=== PATIENT | female | born 1990 | race Caucasian/White ===

== ENCOUNTER 2019-09-08 20:54 | Emergency (ER) | payer OTHER, MEDICAID ==
[2019-09-08] MEDS ORDERED: Potassium Chloride 20 MEQ Tab.ER PO ONE (21:29)
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
[2019-09-08 22:50] VITALS: BP 133/94; PULSE 87
== END 2019-09-08 22:11 | disposition home or self-care (01) ==
LOC: FB.ED 20:54
DX: R00.2 Palpitations (principal); I10 Essential (primary) hypertension; E66.9 Obesity, unspecified; Z88.1 Allergy status to other antibiotic agents; Z88.0 Allergy status to penicillin; Z87.891 Personal history of nicotine dependence; Z68.32 Body mass index [BMI] 32.0-32.9, adult
CPT/HCPCS: 36415; 80048; 83735; 84439; 84443; 85025; 93005; 99285-25; A9270-GY

== ENCOUNTER 2025-04-08 17:52 | Emergency (ER) | payer BC, MEDICAID, OTHER ==
[2025-04-08 20:28] VITALS: BP 116/72; PULSE 82
== END 2025-04-08 20:28 | disposition home or self-care (01) ==
LOC: FB.ED 17:52
DX: J20.9 Acute bronchitis, unspecified (principal); I10 Essential (primary) hypertension; F17.200 Nicotine dependence, unspecified, uncomplicated; Z88.0 Allergy status to penicillin; Z88.8 Allergy status to other drugs, medicaments and biological substances; Z79.899 Other long term (current) drug therapy; Z90.49 Acquired absence of other specified parts of digestive tract
CPT/HCPCS: 71046; 87428; 87651; 99285; A9270; J7512; 99283